=== PATIENT | female | born 1975 | race Two or more races ===

== ENCOUNTER → 2017-07-28 | Emergency (ER) | payer OTHER ==
[~2017-07-28] VITALS: Ht 165.1 cm; Wt 141.1 kg
[~2017-07-28] MED LIST: INTESTINEX1 CAP PO; KETO10TA2 PO; PREVACID30 MG PO; SKELAXIN800 MG PO
== END | disposition home or self-care (01) ==
LOC: ER 01:30
DX: K52.9 Noninfective gastroenteritis and colitis, unspecified (principal)

== ENCOUNTER 2018-06-09 09:41 | Emergency (ER) | payer OTHER ==
[~2018-06-09] VITALS: Ht 162.6 cm; Wt 95.3 kg
== END 2018-06-09 12:34 | disposition home or self-care (01) ==
LOC: ER 09:41
DX: J11.1 Influenza due to unidentified influenza virus with other respiratory manifestations (principal); B34.9 Viral infection, unspecified

== ENCOUNTER → 2019-07-10 | Emergency (ER) | payer OTHER ==
[~2019-07-10] VITALS: Ht 165.1 cm; Wt 139.7 kg
[~2019-07-10] MED LIST changes: +NORFLEX100MG PO
== END | disposition home or self-care (01) ==
LOC: ER 22:52
DX: M54.2 Cervicalgia (principal); M62.838 Other muscle spasm; G44.209 Tension-type headache, unspecified, not intractable; R07.89 Other chest pain

== ENCOUNTER → 2020-01-27 | Emergency (ER) | payer OTHER ==
[~2020-01-27] VITALS: Ht 162.6 cm; Wt 128.4 kg
== END | disposition left against medical advice (07) ==
LOC: ER 14:11
DX: R50.9 Fever, unspecified (principal)

== ENCOUNTER 2020-02-03 18:21 | Inpatient (IN) | payer OTHER ==
[~2020-02-03] VITALS: Ht 162.6 cm; Wt 131.1 kg
== END 2020-02-06 18:09 | disposition home or self-care (01) | DRG 391 ==
LOC: ER 18:21 → MEDJ 02-04 15:05
PROVIDERS: ADMIT Internal Medicine; ATTEND Internal Medicine
PROC: BB24ZZZ Computerized Tomography (CT Scan) of Bilateral Lungs (ICD-10-PCS; principal; 2020-02-04)
PROC: 8E0ZXY6 Isolation (ICD-10-PCS; 2020-02-04)
PROC: 3E0F7GC Introduction of Other Therapeutic Substance into Respiratory Tract, Via Natural or Artificial Opening (ICD-10-PCS; 2020-02-04)
PROC: 4A12X4Z Monitoring of Cardiac Electrical Activity, External Approach (ICD-10-PCS; 2020-02-04)
DX: A08.39 Other viral enteritis (principal); U07.1 COVID-19; J12.89 Other viral pneumonia; N39.0 Urinary tract infection, site not specified; E86.0 Dehydration; E87.8 Other disorders of electrolyte and fluid balance, not elsewhere classified; E66.01 Morbid (severe) obesity due to excess calories

== ENCOUNTER 2021-09-13 09:09 | Outpatient (CLI) | payer OTHER | END 2021-09-13 09:45 | disposition home or self-care (01) | LOC: T RESPIRAT 09:09 → LAB 09:09 | PROVIDERS: ATTEND Surgery | DX: G47.33 Obstructive sleep apnea (adult) (pediatric) (principal) ==

== ENCOUNTER 2021-10-19 09:13 | Emergency (ER) | payer OTHER ==
[~2021-10-19] VITALS: Ht 162.6 cm; Wt 145.6 kg
== END 2021-10-19 14:55 | disposition home or self-care (01) ==
LOC: ER 09:13
DX: M54.50 Low back pain, unspecified (principal); K80.20 Calculus of gallbladder without cholecystitis without obstruction

== ENCOUNTER → 2024-10-27 | Emergency (ER) | payer OTHER ==
[~2024-10-27] VITALS: Ht 165.1 cm; Wt 81.6 kg
[~2024-10-27] MED LIST changes: +KETOROLAC TROMETHAMINE 60 MG VIAL IM ONE; +KETOROLAC TROMETHAMINE 60 MG VIAL IM STA; +MONTELUKAST SOD10 MG PO; +ORPHENADRINE CITRATE 30 MG/ML AMPUL IM STA; +ORPHENADRINE CITRATE 30 MG/ML AMPUL ONE; +OZEMPIC1 MG/0.71 SQ; +SIMVASTATIN20 MG PO
== END | disposition home or self-care (01) ==
LOC: ER 11:17
DX: M54.2 Cervicalgia (principal)
CPT/HCPCS: 72040; 96372; 99283; J1885; J2360